=== PATIENT | female | born 1990 | race Caucasian/White ===

== ENCOUNTER 2020-09-01 18:34 | Emergency (ER) | payer OTHER ==
[~2020-09-01 18:34] MED LIST: MACROBID 100 M100 MG PO
[2020-09-01] MEDS ORDERED: CLINDAMYCIN HC300 MG PO (20:36)
== END 2020-09-01 20:50 | disposition home or self-care (01) ==
LOC: ER1 18:34
DX: K12.2 Cellulitis and abscess of mouth (principal)
CPT/HCPCS: 87070; 87205; 99283